=== PATIENT | female | born 1980 | race Caucasian/White ===

== ENCOUNTER → 2023-03-20 | Outpatient (CLI) | payer BC ==
--- NOTE | 2023-03-20 12:07 | MR ---
EXAMINATION TYPE: MR knee LT wo con DATE OF EXAM: 03/20/2023 COMPARISON: X-ray 03/11/2023 HISTORY: Left knee pain. TECHNIQUE: Multiplanar, multisequence imaging of the left knee is performed without IV contrast. FINDINGS: Exam limited by significant motion artifact. MEDIAL MENISCUS: Intrasubstance signal is seen within the body and posterior horn of the tendon. Unfo rtunately there is significant motion artifact. LATERAL MENISCUS: Anterior and posterior horns are intact without tear. CRUCIATE LIGAMENTS: The anterior and posterior cruciate ligaments are grossly intact and unremarkable . COLLATERAL LIGAMENTS: The medial collateral ligament and lateral collateral ligament complex are inta ct and unremarkable. EXTENSOR MECHANISM: Visualized quadriceps and patellar tendons are intact. EFFUSION: Trace amount of suprapatellar joint effusion. POPLITEAL CYST: No popliteal/pavon cyst. TRICOMPARTMENT SPACES: Preserved. Patellar retinaculum intact. However, there is very subtle increase d signal along the very peripheral and superior margin of the medial patellar retinaculum insertion. Suggest mild intrasubstance edema. CARTILAGE: Preserved. BONE MARROW SIGNAL: No focal abnormal marrow signal is appreciated. A benign-appearing cyst involving the fibula. IMPRESSION: 1. Exam limited due to motion artifact. Grossly the ACL, PCL and collateral ligaments are intact. 2. There is intrasubstance signal within the body and posterior horn of the medial meniscus. May be i n the basis of mucoid degeneration. Given the limitations in exam secondary to motion a peripheral li near tear is also in the differential diagnosis. 3. A trace amount of fluid in the suprapatellar bursa. Grossly the joint space is maintained in the p atellar cartilage is intact. Differential diagnosis would include fat-pad impingement syndrome. 4. Along the superior margin of the medial patellar retinaculum insertion, very mild subtle edema may represent previous injury. Correlate with point tenderness
== END | disposition home or self-care (01) ==
LOC: RADMRIMAIN 08:56
PROVIDERS: ATTEND Orthopaedic Surgery
DX: M25.562 Pain in left knee (principal); R60.0 Localized edema

== ENCOUNTER 2023-05-06 08:45 | Day surgery (SDC) | payer BC ==
[2023-05-01 15:30] VITALS: BMI 19.3
--- NOTE | 2023-05-06 08:16 | HP ---
HISTORY AND PHYSICAL SCHEDULED DATE OF SURGERY: 05/06/2023. HISTORY OF PRESENT ILLNESS: Maribel Roy is a 42-year-old patient, seen with progressive left knee pain. We discussed options for treatment. She elected to proceed with left knee arthroscopy. Consent was obtained. PAST MEDICAL HISTORY: Hypothyroidism. PAST SURGICAL HISTORY: Noncontributory. DAILY MEDICATIONS: Synthroid. ALLERGIES: Codeine. SOCIAL HISTORY: She denies tobacco use. PHYSICAL EVALUATION OF THE LEFT KNEE: Her range of motion is 0 to 120 degrees. There is tenderness along the medial and lateral joint lines. Positive medial Chery's. Ligaments are stable. Hip rotation is without pain. Her distal neurovascular exam is intact. IMAGING STUDIES: Radiographs of the left knee revealed no osteoarthritic changes. There is evidence for intra-articular effusion. MRI left knee revealed a medial meniscal tear. IMPRESSION: 1. Internal derangement of left knee with medial meniscal tear. 2. Hypothyroidism. PLAN: Left knee arthroscopy with partial medial meniscectomy and debridement. MMODL / IJN: [id number] /
[2023-05-06] MEDS ORDERED: LACTATED RINGERS 1,000 ML IV ONE ×2 (09:47→12:18)
[2023-05-06] MEDS: LACTATED RINGERS 1,000 ML IV ONE ×4 (09:47→12:11)
[2023-05-06] MEDS ORDERED: ONDANSETRON 4 MG/2 ML VIAL ONE (09:52)
[2023-05-06] MEDS ORDERED: LIDOCAINE 2% INJ 20 MG/ML (2 ML VIAL) ONE (10:33)
[2023-05-06] MEDS ORDERED: fentaNYL (PF) 50 MCG/ML 2 ML AMP ONE (10:33)
[2023-05-06] MEDS ORDERED: MIDAZOLAM 2 MG/2 ML VIAL ONE (10:33)
[2023-05-06] MEDS ORDERED: KETOROLAC 30 MG/ML 1 ML VIAL ONE (10:33)
[2023-05-06] MEDS ORDERED: PROPOFOL 10 MG/ML 20 ML VIAL IV ONE (10:33)
[2023-05-06] MEDS ORDERED: DEXAMETHASONE SOD PHOSPHATE 4 MG/ML 1 ML VIAL IVP ONE (10:34)
[2023-05-06] MEDS ORDERED: SCOPOLAMINE 1 MG/72 HR PATCH TRANSDERM ONE (10:35)
[2023-05-06] MEDS ORDERED: BUPIVACAINE (PF) 0.5% 30 ML VIAL SQ ONE (10:55)
--- NOTE | 2023-05-06 11:22 | P.OP ---
Date of Procedure: 05/06/23 Preoperative Diagnosis: Internal derangement left knee Postoperative Diagnosis: 1. Tear medial and lateral meniscus left knee 2. Reactive synovitis medial, lateral and suprapatellar compartments left knee 3. Grade 2 chondromalacia medial femoral condyle left knee Procedure(s) Performed: 1. Arthroscopic partial medial and lateral meniscectomy left knee 2. Arthroscopic partial synovectomy medial, lateral and suprapatellar compartments left knee 3. Arthroscopic chondroplasty medial femoral condyle left knee Anesthesia: CECIA, local Surgeon: Juan M Cho Estimated Blood Loss (ml): 7 Pathology: none sent Condition: stable Disposition: PACU Indications for Procedure: 42-year-old patient seen with progressive left knee pain. After having treatment options discussed, she elected to proceed with arthroscopy. Operative Findings: See description of procedure Description of Procedure: Patient was taken to the operative suite. Patient underwent a general anesthetic by the department of anesthesia. Patient was given preoperative antibiotics. The left lower extremity was placed in a well-padded arthroscopic leg bueno. The left leg was prepped and draped in the normal sterile orthopedic fashion. A lateral parapatellar and suprapatellar incision was made. Trochars were inserted. Arthroscopy was initiated. Suprapatellar pouch revealed diffuse thick reactive synovitis. The patellofemoral joint appeared to articulate congruently. There was very early grade 1 chondromalacia of the patella. The scope was guided into the medial gutter. No loose bodies or plica were identified. The scope was then guided into the medial compartment. A medial parapatellar incision was made. Trocar inserted followed by probe. There was a radial tear involving the anterior horn of the medial meniscus. There was thick synovitis in that area as well. There was an area of grade 2 chondromalacia weightbearing surface medial femoral condyle with some peripheral osteochondral flap tears present. I performed a partial medial meniscectomy getting down to stable meniscal tissue. I performed a chondroplasty of the medial femoral condyle getting down to stable osteochondral tissue. I performed a partial synovectomy decompressing the reactive synovitis. The residual meniscus was stable. The residual osteochondral surface was stable. There was good decompression of the synovitis. Scope and probe were then guided into the intercondylar notch. Cruciates were identified, probed and found to be stable. The scope and probe were then guided into lateral compartment. The small radial tear mid body lateral meniscus. There was no chondromalacia present lateral compartment. There was thick reactive some-itis anteriorly. I performed a partial lateral meniscectomy getting down to stable meniscal tissue. I performed a partial synovectomy decompressing reactive synovitis. The residual meniscus was stable. There was good decompression of the synovitis. The scope was in guided back into the suprapatellar compartment. I introduced a motorized shaver into the suprapatellar compartment. I performed a partial synovectomy. The shaver was removed. There appeared be good decompression of the synovitis. I took one more look around the entire knee, no residual debris. Instruments were now removed from the joint. The joint was infiltrated with .25% Marcaine. Steri-Strips were applied to the portal sites. Sterile dressings were applied. The patient was placed into a MAIRA hose. No tourniquet was utilized. The patient was awakened, transferred to a bed and taken to recovery stable satisfac tory condition.
[2023-05-06] MEDS ORDERED: HYDROmorphone 0.5 MG/0.5 ML SYRINGE IVP ONE (11:42)
[2023-05-06 13:17] VITALS: BP 131/80; PULSE 102; TEMP 97.2
[2023-05-06 13:18] VITALS: RESP 18
== END 2023-05-06 13:18 | disposition home or self-care (01) ==
LOC: OR 08:45
PROVIDERS: ATTEND Orthopaedic Surgery
DX: S83.242A Other tear of medial meniscus, current injury, left knee, initial encounter (principal); S83.282A Other tear of lateral meniscus, current injury, left knee, initial encounter; M65.862 Other synovitis and tenosynovitis, left lower leg; M94.262 Chondromalacia, left knee; M25.462 Effusion, left knee; E03.9 Hypothyroidism, unspecified; Z88.5 Allergy status to narcotic agent; X58.XXXA Exposure to other specified factors, initial encounter
CPT/HCPCS: 81025; 29880; J2250; J1100; J2405; J0690; J3010; J1885; J2704; J1170; J2001; J0665